=== PATIENT | male | born 1960 | race Caucasian/White ===

== ENCOUNTER → 2021-04-25 09:17 | Outpatient (BNVA) | payer MEDICARE, OTHER, SELFPAY | PROVIDERS: PCP Nurse Practitioner Family; Visit Provider Urology | DX: R97.20 Elevated prostate specific antigen [PSA] (principal) | CPT/HCPCS: Q3014 ==

== ENCOUNTER → 2021-05-09 14:46 | Outpatient (BNVA) | payer MEDICARE, OTHER, SELFPAY | PROVIDERS: Visit Provider Urology | DX: N40.2 Nodular prostate without lower urinary tract symptoms (principal); R97.20 Elevated prostate specific antigen [PSA] | CPT/HCPCS: 99212 ==

== ENCOUNTER 2021-10-30 13:14 | Outpatient (REF) | payer MEDICARE, OTHER, SELFPAY ==
--- NOTE | ~2021-10-30 | CT_ITS ---
EXAMINATION: CT CHEST SCREENING CLINICAL INFORMATION: Nicotine dependence. COMPARISON: CT chest 02/25/2020. TECHNIQUE: Multidetector volumetric CT imaging of the chest is performed without contrast using low dose technique. Additional 2D coronal and sagittal reformatted images and axial 3D maximum intensity projection (MIP) images are generated on the CT workstation. This CT examination was performed using dose optimization techniques as appropriate, variously including the following: *Automated exposure control *Adjustment of mA and/or kV according to patient size (this includes techniques or standardized protocols for targeted exams where dose is matched to indication/reason for exam; i.e. extremities or head) *Use of iterative reconstruction technique DLP: 54 mGy-cm FINDINGS: LUNGS: The lungs are clear with no evidence of inflammation or nodules. There is bibasilar dependent atelectasis. MEDIASTINUM: The thyroid lobes are symmetrical and normal. The central trachea and the bronchi are widely patent. Heart size and the great vessels are normal caliber. There is no abnormal sized mediastinal or hilar lymph nodes. There is trace coronary artery calcification seen. PLEURA: There is no pleural effusion. No pleural mass or thickening. AXILLA: No lymphadenopathy. UPPER ABDOMEN: Visualized liver, spleen, pancreas and bilateral adrenal glands are unremarkable. OSSEOUS STRUCTURES: No aggressive lytic or sclerotic process seen. CT/CT lung screening IMPRESSION: No acute cardiopulmonary process. Dependent bibasilar atelectasis. ASSESSMENT: Lung-RADS category 1 RECOMMENDATION: Low-dose annual CT chest
== END 2021-10-30 13:15 | disposition home or self-care (01) ==
LOC: HO.CT 13:14
PROVIDERS: Visit Provider Physician Assistant Medical
DX: F17.210 Nicotine dependence, cigarettes, uncomplicated (principal)
CPT/HCPCS: 71271

== ENCOUNTER → 2021-10-31 13:41 | Outpatient (BNVA) | payer MEDICARE, OTHER, SELFPAY | PROVIDERS: Visit Provider Urology | DX: Z13.89 Encounter for screening for other disorder (principal) | CPT/HCPCS: Q3014 ==

== ENCOUNTER → 2021-11-15 13:49 | Outpatient (BNVA) | payer MEDICARE, OTHER, SELFPAY | PROVIDERS: Visit Provider Urology | DX: C61 Malignant neoplasm of prostate (principal) | CPT/HCPCS: 99212 ==

== ENCOUNTER → 2021-11-30 09:21 | Outpatient (BNVA) | payer MEDICARE, OTHER, SELFPAY | PROVIDERS: Visit Provider Urology | DX: C61 Malignant neoplasm of prostate (principal) | CPT/HCPCS: 96402; J9217 ==

== ENCOUNTER 2021-12-26 11:47 | Outpatient (REF) | payer MEDICARE, OTHER, SELFPAY ==
[2021-12-26 12:01] VITALS: BMI 22.2
[2021-12-26 12:02] VITALS: BP 134/87; PULSE 68; RESP 20; TEMP 36.3; O2SAT 98
--- NOTE | 2021-12-26 12:20 | W.PM.OPN ---
Operative Note Operative Note Date of Service: 12/26/21 Narrative: Preoperative diagnosis: Prostate cancer Postoperative diagnosis: Prostate cancer Procedure: 1. Transrectal ultrasound-guided pudendal nerve block 2. Transrectal ultrasound-guided gold seed placement Surgeon: Dr. Everett San Anesthetic: Local Indications for procedure: Prostate Cancer Procedure: After informed consent was verified, the patient was brought into the procedure area and lay left-hand side down on the table. Patient identity confirmed. Perioperative antibiotics confirmed. Gel was placed per rectum Ultrasound probe was placed per rectum A ultrasound-guided pudendal nerve block was performed using 10 cc of 1% lidocaine. 8 cc was placed at the base and 2 cc of the apex. 3 gold seed markers placed. 2 on the right, 1 on the left. The purpose is for triangulation. He tolerated the procedure well. Was able to ambulate to bathroom after 5 minutes. Printed instructions regarding antibiotic use and common side effects such as low-grade temperature and bleeding were given
== END 2021-12-26 11:48 | disposition home or self-care (01) ==
LOC: HO.MS 11:47
PROVIDERS: Visit Provider Urology
PROC: (CPT 55876; principal; 2021-12-26 12:00)
DX: C61 Malignant neoplasm of prostate (principal); N40.1 Benign prostatic hyperplasia with lower urinary tract symptoms; R97.20 Elevated prostate specific antigen [PSA]; R33.9 Retention of urine, unspecified; N13.8 Other obstructive and reflux uropathy; J43.9 Emphysema, unspecified
CPT/HCPCS: 55876; 76942; A4648

== ENCOUNTER 2022-02-25 07:37 | Emergency (ER) | payer MEDICARE, OTHER, SELFPAY ==
[2022-02-25 07:39] VITALS: BP 133/85; PULSE 77; RESP 17; TEMP 36.6; O2SAT 98; BMI 23.6
--- NOTE | 2022-02-25 08:02 | ED_ITS ---
HPI - Wound/Laceration General Chief Complaint: Wound/Laceration Stated Complaint: Insect bite Time Seen by Provider: 02/25/22 07:58 Source: patient Mode of arrival: ambulatory Limitations: no limitations History of Present Illness HPI narrative: 61 yo male with history of prostate CA currently on bicalutamide and radiation presents with one week of redness/swelling to the left side of the head. No fevers, chills, drainage from the site. Patient reports trying to manipulate the site this week and trying to drain the area at home but unsuccessfully. Related Data Home Medications Medication Instructions Recorded Confirmed albuterol sulfate 90 mcg/actuation 2 puff PO QID PRN 04/25/21 aerosol inhaler (ProAir HFA) carbamide peroxide 6.5 % ear drops 5 drp otic (ears) BID 04/25/21 (Ear Drops (carbamide peroxide)) gabapentin 300 mg capsule 300 mg PO TID 04/25/21 nicotine (polacrilex) 4 mg gum mg PO Q2H PRN 04/25/21 nicotine 21 mg/24 hr daily 0 patch topical 04/25/21 transdermal patch perphenazine 2 mg tablet 2 mg PO BID 04/25/21 trazodone 50 mg tablet 50 mg PO BEDTIME 04/25/21 perphenazine 4 mg tablet 4 mg PO BID 05/09/21 bicalutamide 50 mg tablet 50 mg PO DAILY 10/31/21 Previous Rx's Medication Instructions Recorded ciprofloxacin HCl 500 mg tablet 500 mg PO BID 3 days #6 tabs 05/09/21 diazepam 5 mg tablet 5 mg PO DAILY anxiety #1 tab 05/09/21 finasteride 5 mg tablet 5 mg PO DAILY 90 days #90 tabs 11/15/21 doxycycline monohydrate 100 mg 100 mg PO BID #20 tabs 02/25/22 tablet Allergies Allergy/AdvReac Type Severity Reaction Status Date / Time No Known Allergies Allergy Verified 11/15/21 13:54 Review of Systems Review of Systems: Yes all other systems are reviewed and are negative Constitutional: Constitutional: Reports no additional constitutional complaints, Denies body ache(s), Denies chills and Denies fever(s) Eyes: Eyes: Reports no additional eye complaints and Denies eye discharge ENT: Reports system reviewed and no additional complaints, except as documented, Denies nasal congestion, Denies nasal discharge and Denies neck pain Cardiovascular: Cardiovascular: Reports no additional cardiovascular complaints, Denies chest pain and Denies dyspnea Respiratory: Respiratory: Reports no additional respiratory complaints and Denies dyspnea Gastrointestinal: Gastrointestinal: Reports no additional gastrointestinal complaints, Denies diarrhea, Denies nausea and Denies vomiting Musculoskeletal: Musculoskeletal: Reports no additional musculoskeletal complaints, Denies back pain, Denies neck pain, Denies numbness and Denies tingling Integumentary/Breasts: Skin/Breast: Reports system reviewed and no additional complaints, except as docu, Reports furuncle, Reports swelling, Reports erythema and Denies rash Neurologic: Reports system reviewed and no additional complaints, except as documented, Denies numbness and Denies tingling PMFSH Past Medical History Attestation statement: The following information was validated with the patient. Source: old records reviewed and nursing notes reviewed Medical History Chronic back pain Hypercholesteremia Pulmonary emphysema Social History Social History Advance Directives: Yes Advance Directives Information Provided: Yes Advance Directives on File: No Physical Exam Vital Signs: Vital Signs: Last Vital Signs Temp 98 F 02/25/22 07:39 Pulse 77 02/25/22 07:39 Resp 17 02/25/22 07:39 BP 133/85 02/25/22 07:39 Pulse Ox 98 02/25/22 07:39 O2 Del Method 02/25/22 07:39 BMI result Body Mass Index 23.6 Const: General: cooperative, healthy appearing, comfortable and no acute dist ress Orientation/consciousness: patient oriented x3 Limitations: no limitations HEENT: Head: Yes normal to inspection Head images: 1. circular lesion with crusting/induration/tenderness with surrounding erythema/warmth. No fluctuance or pointing Ears: hearing grossly normal bilaterally and TM's normal bilaterally General nose exam: Normal external nose present Face and sinus: Yes normal facial exam Mouth: Normal oral and palatal mucosa present Throat: Yes posterior oropharynx normal Eyes: General: appearance normal, both eyes and all related structures P upils: Equal, round and reactive pupils present Neck: Neck: Yes normal visual inspection, Yes full ROM, Yes no lymphadenopathy and Yes no meningeal signs Resp: Effort & Inspection: normal respiratory effort Neuro: General: patient oriented x3, moves all extremities, no meningeal signs and normal sensation to monofilament Cranial nerves: Yes Equal, round and reactive pupils present Cognition (Neuro): normal cognition Gait exam (Neuro): Normal gait present MDM - Wound/Laceration MDM Narrative Medical decision making narrative: 61 yo male here with crusted, indurated lesion to the left side of the head with surrounding erythema/tenderness/warmth x 1 week. No systemic s/s The site has no fluctuance/pointing that would be conducive to I&D. I did recommend warm compresses QID Will start oral antibiotics. Patient can return if he develops fluctuan ce/pointing for I&D Medical Records Attestation: I reviewed the patient's medical records. Lab Data Attestation: I reviewed the patient's lab results. Discharge Plan Discharge Clinical Impression: Folliculitis Patient Disposition: Home, Self-Care Instructions: Folliculitis (ED) Additional Instructions: Warm compresses four times daily Topical antibiotic ointment Wash hands with soap and water before touching and after touching the area See your PCP in 1 week for persistent symptoms Prescriptions: New doxycycline monohydrate 100 mg tablet 100 mg PO BID Qty: 20 0RF No Action finasteride 5 mg tablet 5 mg PO DAILY 90 Days Qty: 90 1RF gabapentin 300 mg capsule 300 mg PO TID trazodone 50 mg tablet 50 mg PO BEDTIME carbamide peroxide [Ear Drops (carbamide peroxide)] 6.5 % drops 5 drp otic (ears) BID nicotine 21 mg/24 hr patch 24 hour 0 patch topical nicotine (polacrilex) 4 mg gum PO Q2H PRN albuterol sulfate [ProAir HFA] 90 mcg/actuation HFA aerosol inhaler 2 puff PO QID PRN perphenazine 2 mg tablet 2 mg PO BID perphenazine 4 mg tablet 4 mg PO BID diazepam 5 mg tablet 5 mg PO DAILY Qty: 1 0RF Rx Instructions: take one tab when arrive for procedure ciprofloxacin HCl 500 mg tablet 500 mg PO BID 3 Days Qty: 6 0RF Rx Instructions: Take antibiotics day before, day of, and day after procedure bicalutamide 50 mg tablet 50 mg PO DAILY Referrals: [facility] [Primary Care Provider] - 1 week (PCP for continued s ymptoms ) Interventions: ED Discharge Assessment Last Done: 02/25/22 08:37 Discharge Date/Time: 02/25/22 08:38
== END 2022-02-25 08:38 | disposition home or self-care (01) ==
PROVIDERS: Emergency Provider Emergency Medicine
DX: L73.9 Follicular disorder, unspecified (principal); Z79.899 Other long term (current) drug therapy
CPT/HCPCS: 99283

== ENCOUNTER → 2022-03-20 12:19 | Outpatient (BNVA) | payer MEDICARE, OTHER, SELFPAY | PROVIDERS: Visit Provider Urology | DX: C61 Malignant neoplasm of prostate (principal) | CPT/HCPCS: Q3014 ==

== ENCOUNTER 2022-03-26 10:03 | Emergency (ER) | payer OTHER, MEDICARE, SELFPAY ==
--- NOTE | ~2022-03-26 | CT_ITS ---
EXAMINATION: CT CERVICAL SPINE WITHOUT CONTRAST CLINICAL INFORMATION: Head and neck pain COMPARISON: None TECHNIQUE: Thin section axial scans sagittal and coronal reformats are obtained. This CT examination was performed using dose optimization techniques as appropriate, variously including the following: *Automated exposure control *Adjustment of mA and/or kV according to patient size (this includes techniques or standardized protocols for targeted exams where dose is matched to indication/reason for exam; i.e. extremities or head) *Use of iterative reconstruction technique DLP: 412 mGy-cm FINDINGS: There is severe arthritic and degenerative change observed C3-C4, C4-C5 and C5-C6 and C6-C7 with prominent posterior spurring and disc protrusions causing multilevel moderate spinal stenosis but no acute fracture or acute destructive process. Prevertebral soft tissues are normal. CT/CT cervical spine wo IV con IMPRESSION: Degenerative changes noted throughout the cervical spine causing moderate multilevel spinal stenosis. No acute findings.
--- NOTE | ~2022-03-26 | CT_ITS ---
EXAMINATION: CT HEAD WITHOUT CONTRAST CLINICAL INFORMATION: Head pain COMPARISON: 01/09/2019 TECHNIQUE: Contiguous axial imaging was performed from the skull base to vertex without intravenous administration of contrast. This CT examination was performed using dose optimization techniques as appropriate, variously including the following: *Automated exposure control *Adjustment of mA and/or kV according to patient size (this includes techniques or standardized protocols for targeted exams where dose is matched to indication/reason for exam; i.e. extremities or head) *Use of iterative reconstruction technique DLP: 753 mGy-cm FINDINGS: No intra or extra-axial fluid collection, hemorrhage, mass or mass effect. Sulci and ventricles normal. Calvarium intact. Extensive mucoperiosteal thickening is seen within the ethmoid and maxillary sinuses. The retrobulbar regions are intact. No significant change. CT/CT head/brain wo IV con IMPRESSION: No acute intracranial pathology.
[2022-03-26 10:11] VITALS: BP 144/86; PULSE 72; RESP 18; TEMP 36.7; O2SAT 98; BMI 23.0
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
[2022-03-26] MEDS: Cyclobenzaprine HCl 5 MG TABLET PO (10:52)
[2022-03-26] MEDS: Ketorolac Tromethamine 15 MG/ML VIAL IM (12:50)
== END 2022-03-26 13:14 | disposition home or self-care (01) ==
PROVIDERS: Emergency Provider Emergency Medicine
DX: Z04.1 Encounter for examination and observation following transport accident (principal); M54.2 Cervicalgia
CPT/HCPCS: 70450; 72125; 96372; 99283; 99284; J1885

== ENCOUNTER 2022-03-26 15:12 | Emergency (ER) | payer MEDICARE, OTHER, SELFPAY ==
[2022-03-26 15:34] VITALS: BP 110/60; BP 113/73; PULSE 67; PULSE 79; RESP 18; TEMP 36.3; O2SAT 94; O2SAT 97; BMI 23.6
--- NOTE | 2022-03-26 15:40 | ECG_ITS ---
Test Reason : DIZZINESS Blood Pressure : / mmHG Vent. Rate : 066 BPM Atrial Rate : 066 BPM P-R Int : 196 ms QRS Dur : 088 ms QT Int : 398 ms P-R-T Axes : 050 001 033 degrees QTc Int : 417 ms Normal sinus rhythm Normal ECG When compared with ECG of 13-JAN-2019 22:22, No significant change was found Referred By: Shahida Fischer Electronically Signed By:JERRELL SUNG
[2022-03-26 15:42] VITALS: BP 125/80; PULSE 58
[2022-03-26 15:45] VITALS: BP 127/73; PULSE 67
[2022-03-26 15:46] VITALS: BP 110/73; PULSE 90
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
[2022-03-26] MEDS: 0.9 % Sodium Chloride 1,000 ML 999 ML IV (16:01)
[2022-03-26 16:06] LABS: MANUAL DIFF FLAG NO
[2022-03-26 16:08] LABS: Basophils Absolute Auto 0.1 X10*3/uL (0.0-0.2); Basophils Percent Auto 0.8 % (0-2); Eosinophils Absolute Auto 0.4 X10*3/uL (0.0-0.4); Eosinophils Percent Auto 4.1 % (0-4); Hematocrit 40.2 % (42.0-52.0); Hemoglobin 13.9 g/dl (14.0-18.0); Imm Gran Abs Auto 0.04 X10*3/uL (0.00-0.03); Imm Gran Pct Auto 0.5 % (0.0-0.4); Lymphocytes Absolute Auto 1.6 X10*3/uL (1.2-4.9); Lymphocytes Percent Auto 18.6 % (20-40); Mean Corpuscular HGB Conc 34.6 g/dl (31.0-36.0); Mean Corpuscular Hemoglobin 31.4 pg (27.0-33.0); Mean Corpuscular Volume 90.7 fL (80.0-98.0); Mean Platelet Volume 8.4 fL (9.4-12.4); Monocytes Absolute Auto 0.7 X10*3/uL (0.1-1.2); Monocytes Percent Auto 8.8 % (2-11); Neutrophils Absolute Auto 5.7 x10*3/uL (2.0-8.3); Neutrophils Percent Auto 67.2 % (45-73); Platelet Count 255 X10*3/uL (160-400); Red Blood Count 4.43 X10*6/uL (4.60-5.80); Red Cell Distribution Width 12.3 % (11.0-16.0); White Blood Count 8.5 X10*3/uL (4.8-10.8)
[2022-03-26 16:25] LABS: Alanine Aminotransferase 22 U/L (0-40); Albumin Level 4.5 g/dL (3.5-5.0); Alkaline Phosphatase 60 U/L (39-117); Anion Gap 15 (12-20); Aspartate Amino Transferase 21 U/L (5-37); Bilirubin Direct 0.2 mg/dL (0.0-0.5); Bilirubin Total 0.4 mg/dL (0.0-1.0); Blood Urea Nitrogen 17 mg/dL (9-16); Calcium 9.7 mg/dL (8.4-10.2); Carbon Dioxide 26 mmol/L (22-29); Chloride 103 mmol/L (96-108); Creatinine Clr Calc Pharmacy 64.5; Estimated Glomerular Filt Rate 59; Glucose Random 123 mg/dL (60-115); Lipase 24 U/L (8-78); Potassium 4.3 mmol/L (3.3-5.1); Sodium 140 mmol/L (135-145)
[2022-03-26 16:31] LABS: Troponin-I High Sensitivity < 3.5 ng/L (<3.5-35.0)
== END 2022-03-26 18:51 | disposition home or self-care (01) ==
PROVIDERS: Emergency Provider Emergency Medicine
DX: I95.1 Orthostatic hypotension (principal); R42 Dizziness and giddiness
CPT/HCPCS: 36415; 80048; 80076; 83690; 84484; 85025; 93005; 96360; 99284

== ENCOUNTER 2023-01-11 06:10 | Outpatient (REF) | payer MEDICARE, MEDICAID, SELFPAY ==
[2023-01-11 09:16] LABS: Prostate Specific Antigen < 0.10 ng/mL (<0.05-4.0)
== END 2023-01-11 06:11 | disposition home or self-care (01) ==
LOC: HO.LAB 06:10
PROVIDERS: PCP Nurse Practitioner Primary Care; Visit Provider Urology
DX: Z12.5 Encounter for screening for malignant neoplasm of prostate (principal); C61 Malignant neoplasm of prostate
CPT/HCPCS: 36415; 84153

== ENCOUNTER 2023-01-16 13:10 | Outpatient (AMB) | payer MEDICARE, MEDICAID, SELFPAY ==
--- NOTE | 2023-01-16 14:28 | MHC.OFFVIS ---
Intake Intake Visit Reasons: PSA Follow Up(set) Intake Note: Patient is present for Telephone psa Urology Med: Finasteride, (needs refill) Antibiotic Allergy: None Blood Thinner: None Allergies No Known Allergies Allergy (Verified 01/16/23 14:29) Medication List - Last Reconciled 01/16/23 by Everett aSn MD albuterol sulfate 90 mcg/actuation (ProAir HFA) 2 puffs PO QID PRN atorvastatin 40 mg PO DAILY carbamide peroxide 6.5% (Ear Drops (carbamide peroxide)) 5 drps otic (ears) BID ciprofloxacin HCl 500 mg PO BID 3 days cyclobenzaprine 5 mg PO TID PRN 7 days diazepam 5 mg PO DAILY doxycycline monohydrate 100 mg PO BID finasteride 5 mg PO DAILY 90 days gabapentin 300 mg PO TID nicotine 0 patches topical nicotine (polacrilex) mg PO Q2H PRN perphenazine 2 mg PO BID perphenazine 4 mg PO BID trazodone 50 mg PO BEDTIME HPI HPI Comments History of Present Illness Details Tony is a pleasant male. He is seen for the following urologic condition - prostate cancer Telemedicine evaluation 15 minute consultation [employer] [place] Video attempted PSA 01/20 <0.1 Good control urination Has been given hormone shot in [place] that he tells me will last 2 months Will repeat lab work in March Prostate Cancer - 09/19 - Multicore Grade Group 1-2 Diagnosed in [place] 09/19 Initial PSA 42 - he had refused follow-up knowing he had a large prostate. Anterior location with large abutting gland Initial therapy with GnRH for 6 months and radiation Per report [place] 3 + 3 Multiple biopsies - therapy bicalutamide 09/19 Records from [facility] - 09/19 bone scan - no definitive active tracer - 09/19 MRI - large PI-RADS 5 lesion anteriorly abutting capsule of a 1 cm, no CARLOS, no clear pelvic nodes. Gland volume 35 cc His friend is Liv [phone] Completed radiation therapy at [facility] [place] 02/19 - combined with GnRH was 6 months [facility] Medical History Chronic back pain Hypercholesteremia Pulmonary emphysema Review of Systems Const All systems reviewed & are unremarkable except as noted in HPI and below Reports no additional complaints Resp Reports no additional complaints GI Reports no additional complaints Reports as per HPI Musc Reports no additional complaints Physical Exam Telemedicine evaluation Appropriate responses Regular breathing rate and rhythm HEENT Head: Yes normal to inspection Ears: hearing grossly normal bilaterally Eyes General: appearance normal, both eyes and all related structures Neck Neck: Yes normal visual inspection Chest Chest palpation & inspection: normal inspection of the chest Resp Effort & Inspection: normal respiratory effort and able to speak in complete sentences Assessment & Plan Assessment & Plan (1) Prostate cancer: Comment: 09/19 PSA 42 Lauryn 6 MRI with anterior lesion GnRH 6 months plus external beam radiation [facility] [place] Code(s): C61 - Malignant neoplasm of prostate Plan March follow-up PSA Orders: Orders Prostate Specific Antigen 4 Months C61 - Malignant neoplasm of prostate Testosterone, Total 4 Months C61 - Malignant neoplasm of prostate Medications: Refilled finasteride 5 mg PO DAILY 90 tabs 1RF 90 days N13.8 - Other obstructive and reflux uropathy, N40.1 - Benign prostatic hyperplasia with lower urinary tract symptoms, R33.9 - Retention of urine, unspecified, R97.20 - Elevated prostate specific antigen [PSA] Patient Instructions: Imaging studies, laboratory and physical exam results were discussed and reviewed in detail. No major barriers to patient understanding were identified. An opportunity to ask questions regarding the treatment plan was provided. All questions were answered. The patient expressed understanding and agreement with the above treatment plan. The patient is aware they should contact our office by phone for worsening of their current condition or the appearance of new urologic symptoms. Compliance is encouraged with any medications and followup testing that is ordered. It is a privilege to participate in the urologic care of your patient. If you have any questions or concerns regarding treatment for the above conditions, or other urologic issues, please do not hesitate to contact me. The office telephone contact is [phone]. This note is constructed using voice recognition software. While every effort has been made to ensure accuracy lan support specialist errors may have been included. Yours sincerely, Dr Everett San MD, YUDITH [facility] - Urology Providers of Expert, Compassionate Care for the Genitourinary System Telehealth Telehealth Location of provider rendering services: practice address Location of patient: address on file Patient Identification confirmed using: Name, : Yes Telehealth method: voice only Patient verbally consented to treatment: Yes Patient verbally consented to billing insurance company: Yes Patient informed of any privacy concerns related to visit: Yes Coding Level of Care Code Tele Est Pt Level 3 (88533) Diagnoses Prostate cancer C61
== END 2023-01-16 16:42 | disposition home or self-care (01) ==
LOC: HO.HUSH 13:10
PROVIDERS: PCP Nurse Practitioner Primary Care; Visit Provider Urology
DX: C61 Malignant neoplasm of prostate (principal)
CPT/HCPCS: 99442

== ENCOUNTER → 2023-01-16 13:10 | Outpatient (BNVA) | payer MEDICARE, MEDICAID, SELFPAY | PROVIDERS: PCP Nurse Practitioner Primary Care; Visit Provider Urology ==

== ENCOUNTER 2023-11-14 16:17 | Outpatient (REF) | payer MEDICARE, SELFPAY ==
[2023-11-14 19:18] LABS: Prostate Specific Antigen 0.33 ng/mL (<0.05-4.0)
[2023-11-14 19:19] LABS: PSA,Total (Free>4and<10) 0.31 ng/mL (0.00-4.00)
[2023-11-18 16:24] LABS: Testosterone, Total 401 ng/dL (250-1100)
== END 2023-11-14 16:18 | disposition home or self-care (01) ==
LOC: HO.HHCL 16:17
PROVIDERS: Emergency Medicine; Visit Provider Urology
DX: C61 Malignant neoplasm of prostate (principal); Z12.5 Encounter for screening for malignant neoplasm of prostate
CPT/HCPCS: 36415; 84153; 84403

== ENCOUNTER 2023-12-19 11:07 | Outpatient (AMB) | payer MEDICARE, SELFPAY ==
--- NOTE | 2023-12-19 11:16 | MHC.OFFVIS ---
Intake Visit Reasons: follow up/PSA/(set) Intake Note: Patient is Present for Follow Up PSA Urology Medication:Finasteride Antibiotic Allergies: None Blood Thinners: None Allergies No Known Allergies Allergy (Verified 12/19/23 11:24) HPI Comments Details: Tony is a pleasant male. He is seen for the following urologic condition - prostate cancer PSA 01/20 <0.1, 11/21 0.3 T 400 Doing well Discussed results Testosterone recovered Continue follow-up q.6 month for 5 years Prostate Cancer - 09/19 - Multicore Grade Group 1-2 - completed short course GnRH with external beam radiation at [facility] 02/19 Diagnosed in [place] 09/19 Initial PSA 42 - he had refused follow-up knowing he had a large prostate. Anterior location with large abutting gland Initial therapy with GnRH for 6 months and radiation Per report [place] 3 + 3 Multiple biopsies - therapy bicalutamide 09/19 Records from [facility] - 09/19 bone scan - no definitive active tracer - 09/19 MRI - large PI-RADS 5 lesion anteriorly abutting capsule of a 1 cm, no CARLOS, no clear pelvic nodes. Gland volume 35 cc His friend is Liv [phone] Completed radiation therapy at [facility] 02/19 - combined with GnRH was 6 months [facility] Medical History Pulmonary emphysema Hypercholesteremia Chronic back pain Review of Systems Const Denies chills and Denies fever(s) Card Reports no additional complaints and Denies syncope Resp Denies cough GI Denies abdominal pain and Denies heartburn Reports as per HPI and Denies change in libido Neuro Denies syncope Psych Denies change in libido Endo Denies change in libido Physical Exam Const General: cooperative, healthy appearing, comfortable and no acute distress Orientation/consciousness: patient oriented x3 HEENT Face and sinus: Yes normal facial exam Mouth: moist mucous membranes Neck Neck: Yes normal visual inspection, Yes full ROM and Yes trachea midline Chest Chest palpation & inspection: normal inspection of the chest Resp Effort & Inspection: normal respiratory effort, able to speak in complete sentences and no respiratory distress GI Inspection: Yes normal to inspection Back/Spine/Pelvis Cervical Spine: normal cervical lordosis Thoracic/Lumbar Spine: thoracic and lumbar spine normal to inspection Skin General skin exam: no rashes or lesions noted Neuro General: patient oriented x3, gait normal, tone normal and moves all extremities Extrem General: Yes normal to inspection and Yes capillary refill normal Assessment & Plan Assessment & Plan (1) Prostate cancer: Comment: 09/19 PSA 42 Lauryn 6 MRI with anterior lesion GnRH 6 months plus external beam radiation [facility] Code(s): C61 - Malignant neoplasm of prostate Category: Medical Plan Six-month follow-up PSA Orders: Orders Prostate Specific Antigen 6 Months C61 - Malignant neoplasm of prostate Patient Instructions: Imaging studies, laboratory and physical exam results were discussed and reviewed in detail. No major barriers to patient understanding were identified. An opportunity to ask questions regarding the treatment plan was provided. All questions were answered. The patient expressed understanding and agreement with the above treatment plan. The patient is aware they should contact our office by phone for worsening of their current condition or the appearance of new urologic symptoms. Compliance is encouraged with any medications and followup testing that is ordered. It is a privilege to participate in the urologic care of your patient. If you have any questions or concerns regarding treatment for the above conditions, or other urologic issues, please do not hesitate to contact me. The office telephone contact is [phone]. This note is constructed using voice recognition software. While every effort has been made to ensure accuracy overage shortage and damage clerk errors may have been included. Yours sincerely, Dr Everett San MD, YUDITH [facility] - Urology Providers of Expert, Compassionate Care for the Genitourinary System Coding Level of Care Code Est Pt Level 4 (63597) Diagnoses Prostate cancer C61
== END 2023-12-19 11:46 | disposition home or self-care (01) ==
PROVIDERS: PCP Nurse Practitioner Primary Care; Visit Provider Urology
DX: C61 Malignant neoplasm of prostate (principal)
CPT/HCPCS: 99213

== ENCOUNTER → 2023-12-19 11:07 | Outpatient (BNVA) | payer MEDICARE, SELFPAY | PROVIDERS: PCP Nurse Practitioner Primary Care; Visit Provider Urology | DX: C61 Malignant neoplasm of prostate (principal) | CPT/HCPCS: 99212 ==

== ENCOUNTER 2024-03-17 13:21 | Outpatient (REF) | payer MEDICARE, SELFPAY ==
--- NOTE | ~2024-03-17 | US_ITS ---
EXAMINATION: US EXTRACRANIAL CAROTID DUPLEX, BILATERAL CLINICAL INFORMATION: Dizziness COMPARISON: None available. TECHNIQUE: Real-time ultrasound and Doppler techniques (integrating B-mode 2-D vascular images, Doppler spectral analysis and color-flow Doppler imaging) were utilized to interrogate the extracranial carotid arteries, the vertebral arteries and proximal subclavian arteries bilaterally. The degree of stenosis is determined by criteria similar to NASCET. FINDINGS: Right Side: 1. There is mild calcified atherosclerotic plaque seen in the bifurcation/proximal ICA region. 2. The common carotid artery PSV proximally is 72 cm/s and distally 75 cm/s. 3. The proximal internal carotid artery velocities are 76 cm/s systolic and 29 cm/s diastolic. 4. The proximal external carotid artery PSV is 72 cm/s. 5. The vertebral artery shows antegrade flow. 6. The subclavian artery waveforms are normal. Left Side: 1. There is mild calcified atherosclerotic plaque seen in the bifurcation/proximal ICA region. 2. The common carotid artery PSV proximally is 107 cm/s and distally 77 cm/s. 3. The proximal internal carotid artery velocities are 67 cm/s systolic and 34 cm/s diastolic. 4. The proximal external carotid artery PSV is 72 cm/s. 5. The vertebral artery shows antegrade flow. 6. The subclavian artery waveforms are normal. US/US carotid duplex BI IMPRESSION: 1. RIGHT: Minimal, non-hemodynamically significant stenosis of the proximal right internal carotid artery corresponding to a 0-49% stenosis by velocity criteria. 2. LEFT: Minimal, non-hemodynamically significant stenosis of the proximal left internal carotid artery corresponding to a 0-49% stenosis by velocity criteria. 3. There is no change in the category severity of disease when compared to the previous study dated 03/02/2009. Electronically signed by: Harshil Cadet MD 03/20/2024 01:31 PM EDT RP
== END 2024-03-17 13:22 | disposition home or self-care (01) ==
LOC: HO.US 13:21
PROVIDERS: PCP Nurse Practitioner Primary Care; Visit Provider Nurse Practitioner Primary Care
DX: R42 Dizziness and giddiness (principal)
CPT/HCPCS: 93880

== ENCOUNTER 2024-05-18 07:07 | Outpatient (REF) | payer MEDICARE, SELFPAY ==
[2024-05-18 08:04] LABS: Cholesterol 232 mg/dL (<200); HDL Cholesterol 42 mg/dL (>40); LDL Cholesterol Calculated 162 mg/dL (<100); Triglycerides 140 mg/dL (<150)
[2024-05-18 08:36] LABS: Prostate Specific Antigen 0.26 ng/mL (<0.05-4.0)
== END 2024-05-18 07:08 | disposition home or self-care (01) ==
LOC: HO.LAB 07:07
PROVIDERS: PCP Nurse Practitioner Primary Care; Visit Provider Urology
DX: C61 Malignant neoplasm of prostate (principal); E78.00 Pure hypercholesterolemia, unspecified; Z12.5 Encounter for screening for malignant neoplasm of prostate
CPT/HCPCS: 36415; 80061; 84153

== ENCOUNTER 2025-01-11 08:34 | Outpatient (REF) | payer MEDICARE, SELFPAY ==
--- OUTSIDE RECORDS SUMMARY | 2025-01-11 08:40 | XMS_ITS | Patient Health Record ---
Author Organization [facility] Address [address] [place] [address] [address] [place] [address] Care Team Providers Care Reservoir Caretaker Name Role Phone GEORGINA LAKHANI Unavailable [phone] Reason For Referral No Information Plan Of Treatment No Information Insurance Providers Payer Name Payer Address Payer Phone Subscriber Number Group Number Insured Name Patient Relationship to Insured Coverage Start Date Coverage End Date Medicare Part B [address] [place] [phone] [id number] Tony Murphy Self - patient is the insured
--- OUTSIDE RECORDS SUMMARY | 2025-01-11 08:40 | XMS_ITS | Encounter Summary ---
Author Organization [employer] Address [address] [place] [address] Care Team Providers Care Soil Analyst Name Role Phone Nabila Moore Primary Care Provider [phone] Reason for Visit * Reason Comments Med Refill Encounter Details Date Type Department Care Team (Late st Contact Info) Description 04/29/2024 Refill [facility] [address] [place] [address] Nabila Moore ANP [address] [place] [address] Cervical radiculopathy; Malignant neoplasm of prostate (CMS/HCC) Social History Tobacco Use Types Packs/Day Years Used Date Smoking Tobacco: Every Day Cigarettes Smokeless Tobacco: Never Alcohol Use Standard Drinks/Week Comments Not Currently 0 (1 standard drink = 0.6 oz pur e alcohol) Sex and Gender Information Value Date Recorded Sex Assigned at Male 04/30/2022 10:16 AM EDT Legal Sex Male 10:16 AM EDT Gender Identity Male 04/30/2022 10:16 AM EDT Sexual Orientation Straight 04/30/2022 10 :16 AM EDT documented as of this encounter Plan of Treatment Upcoming Encounters Date Type Department Care Team (Late Contact Info) Description 02/08/2025 1:30 PM EDT Telemedicine [facility] [address] [place] [address] Connie Lewis, RN [address] [place] [address] 03/18/2025 9:15 AM EDT Office Visit [facility] [address] [place] [address] Nabila Moore ANP [address] [place] [address] documented as of this encounter Visit Diagnoses Diagnosis Cervical radiculopathy Brachial neuritis or radiculitis nos Malignant neoplasm of prostate (CMS/HCC) Malignant neoplasm of prostate documented in this encounter Care Teams Soil Analyst Relationship Specialty Start Date End Date Nabila Moore ANP [address] [place] [address] PCP - General Family Medicine 08/16/20 documented as of this encounter
--- OUTSIDE RECORDS SUMMARY | 2025-01-11 08:40 | XMS_ITS | Patient Health Record ---
Author Organization [facility] Address [address] [place] [address] Care Team Providers Care Injection Molding Machine Offbearer Name Role Phone NONE, NONE Primary Care Provider Unavailkat e Jemal Olsen Unavailable [phone] Reason For Referral No Information Medications Medication SIG (Take, Route, Fr equency, Duration) Notes Start Date End Date Status MoviPrep 100 GM as directed Orally 04/25/2011 01/0 07/2024 Active Plan Of Treatment Future Test Test Name Order Date COLONOSCOPY 04/25/2011 Insurance Providers Payer Name Payer Address Payer Phone Subscriber Number Group Number Insured Name Patient Relationship to Insured Coverage Start Date Coverage End Date MED[place]ARE OF [place] [address] [facility] [place] [id number] [phone] [id number] LINA HAGEN Self - patient is the insured Medical (General) History Medical History History ICD Code alcohol and substance abuse, 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
[2025-01-11 12:15] LABS: Prostate Specific Antigen 0.45 ng/mL (<0.05-4.0)
== END 2025-01-11 08:35 | disposition home or self-care (01) ==
LOC: HO.HHCL 08:34
PROVIDERS: PCP Nurse Practitioner Primary Care; Visit Provider Student in an Organized Health Care Education/Training Program
DX: Z12.5 Encounter for screening for malignant neoplasm of prostate (principal); Z85.46 Personal history of malignant neoplasm of prostate
CPT/HCPCS: 36415; 84153

== ENCOUNTER 2025-03-25 09:15 | Outpatient (REF) | payer MEDICARE, SELFPAY ==
--- OUTSIDE RECORDS SUMMARY | 2025-03-25 10:09 | XMS_ITS | Patient Health Record ---
Author Organization [facility] Address [address] [place] [address] Care Team Providers Care Furnace Loader Name Role Phone NONE, NONE Primary Care Provider Unavailkat e Jemal Olsen Unavailable [phone] Reason For Referral No Information Medications Medication SIG (Take, Route, Fr equency, Duration) Notes Start Date End Date Status MoviPrep 100 GM as directed Orally 04/25/2011/0 07/2024 Active Plan Of Treatment Future Test Test Name Order Date COLONOSCOPY 04/25/2011 Insurance Providers Payer Name Payer Address Payer Phone Subscriber Number Group Number Insured Name Patient Relationship to Insured Coverage Start Date Coverage End Date [place]ARE OF [place] [address] [facility] [place] [id number] [phone] [id number] LINA HAGEN Self - patient is the insured Medical (General) History Medical History History ICD Code alcohol and substance abuse, with sobriety for over one year--he reports that he is in a rehabilitation program Denies [place],DM,CVA,Lung disease,renal dise ase Surgical History Surgery Date(Month/Year) none
--- OUTSIDE RECORDS SUMMARY | 2025-03-25 10:10 | XMS_ITS | Patient Health Record ---
Author Organization [facility] Address [address] [place] [address] [address] [place] [address] Care Team Providers Care Legal Billing Analyst Name Role Phone GEORGINA LAKHANI Unavailable [phone] Reason For Referral No Information Plan Of Treatment No Information Insurance Providers Payer Name Payer Address Payer Phone Subscriber Number Group Number Insured Name Patient Relationship to Insured Coverage Start Date Coverage End Date Medicare Part B [address] [place] [id number] [id number] Tony Murphy Self - patient is the insured
[2025-03-25 11:01] LABS: MANUAL DIFF FLAG NO
[2025-03-25 11:21] LABS: Hematocrit 38.3 % (42.0-52.0); Hemoglobin 12.9 g/dl (14.0-18.0); Imm Gran Abs Auto 0.02 X10*3/uL (0.00-0.03); Imm Gran Pct Auto 0.3 % (0.0-0.4); Lymphocytes Absolute Auto 2.3 X10*3/uL (1.2-4.9); Mean Corpuscular HGB Conc 33.7 g/dl (31.0-36.0); Mean Corpuscular Hemoglobin 31.9 pg (27.0-33.0); Mean Corpuscular Volume 94.6 fL (80.0-98.0); NRBC Abs Auto 0.000 X10*3/uL (0.0-0.012); NRBC Pct Auto 0.0 /100WBC (0.0-0.2); Platelet Count 282 X10*3/uL (160-400); Red Blood Count 4.05 X10*6/uL (4.60-5.80); White Blood Count 7.7 X10*3/uL (4.8-10.8)
[2025-03-25 11:51] LABS: Anion Gap 12 (12-20); Blood Urea Nitrogen 16 mg/dL (9-16); Carbon Dioxide 25 mmol/L (22-29); Chloride 108 mmol/L (96-108); Potassium 4.1 mmol/L (3.3-5.1); Sodium 141 mmol/L (135-145)
[2025-03-25 11:52] LABS: Alanine Aminotransferase 15 U/L (0-40); Albumin Level 4.3 g/dL (3.5-5.0); Alkaline Phosphatase 57 U/L (39-117); Aspartate Amino Transferase 24 U/L (5-37); Calcium 8.7 mg/dL (8.4-10.2); Cholesterol 211 mg/dL (<200); Estimated Glomerular Filt Rate > 60; HDL Cholesterol 37 mg/dL (>40); Iron 78 mcg/dL (45-160); Percent Iron Saturation 34 % (15-50); Total Iron Binding Capacity 228 mcg/dL (228-428); Total Protein 6.6 g/dL (6.5-8.0); Triglycerides 139 mg/dL (<150); Unsaturated Iron Binding 150 ug/dL
== END 2025-03-25 09:16 | disposition home or self-care (01) ==
LOC: HO.HHCL 09:15
PROVIDERS: PCP Nurse Practitioner Primary Care; Visit Provider Nurse Practitioner Primary Care
DX: Z13.1 Encounter for screening for diabetes mellitus (principal); D64.9 Anemia, unspecified; E78.00 Pure hypercholesterolemia, unspecified
CPT/HCPCS: 36415; 80053; 80061; 83036; 83540; 85025